=== PATIENT | female | born 1995 | race Caucasian/White ===

== ENCOUNTER → 2021-02-14 | Outpatient (CLI) | payer OTHER ==
[~2021-02-14] MED LIST: CEPH500 PO; Flagyl500 MG PO; METPHE20 PO; NITR100CA PO; Phenergan/Code480 ML PO; Prednisone20 MG PO; Pyridium100 MG PO
== END | disposition home or self-care (01) ==
LOC: LAB SHORT 15:27 → LAB 15:27
PROVIDERS: Family Medicine
DX: Z01.419 Encounter for gynecological examination (general) (routine) without abnormal findings (principal)
CPT/HCPCS: G0145

== ENCOUNTER 2024-12-02 08:49 | Emergency (ER) | payer SELFPAY ==
[~2024-12-02] VITALS: Ht 167.6 cm; Wt 104.3 kg
[2024-12-02] MEDS ORDERED: Ketorolac Tromethamine 15mg Vial IV ONE (09:30)
[2024-12-02] MEDS ORDERED: Prochlorperazine Edisylate 10 mg Vial IV ONE (09:30)
[2024-12-02] MEDS ORDERED: DiphenhydrAMINE HCl 50 MG/ML 1ML Vial IV ONE (09:30)
[2024-12-02] MEDS ORDERED: IMITREX50 M1 PO (09:59)
[2024-12-02] MEDS ORDERED: SERT50 PO (09:59)
[2024-12-02 11:14] VITALS: BP 130/68
== END 2024-12-02 11:14 | disposition home or self-care (01) ==
LOC: ER 08:49
DX: R51.9 Headache, unspecified (principal); Z79.899 Other long term (current) drug therapy
CPT/HCPCS: 96374; 96375; 99283-25; J0780; J1200; J1885

== ENCOUNTER → 2025-01-06 | Outpatient (CLI) | payer SELFPAY ==
[~2025-01-06] MED LIST changes: +IMITREX50 M1 PO; +SERT50 PO
[2025-01-06 12:14] LABS: BASOPHILS ABSOLUTE AUTO 0.04 K/mm3 (0.00-0.23); BASOPHILS PERCENT AUTO 0 % (0-2); EOSINOPHILS ABSOLUTE AUTO 0.03 K/mm3 (0.00-0.68); EOSINOPHILS PERCENT AUTO 0 % (0-6); Hematocrit 38.3 % (33.0-51.0); Hemoglobin 12.6 g/dL (11.5-16.0); IMMATURE GRAN ABSOLUTE AUTO 0.05 K/mm3 (0.00-0.10); IMMATURE GRAN PERCENT AUTO 0 % (0-1); LYMPHOCYTES ABSOLUTE AUTO 2.63 K/mm3 (0.84-5.20); LYMPHOCYTES PERCENT AUTO 20 % (21-46); MONOCYTES ABSOLUTE AUTO 0.76 K/mm3 (0.16-1.47); MONOCYTES PERCENT AUTO 6 % (4-13); Mean Corpuscular HGB 30.9 pg (26.0-34.0); Mean Corpuscular HGB Conc 32.9 g/dL (31.5-36.5); Mean Corpuscular Volume 94 fL (80-100); Mean Platelet Volume 11.8 fL (9.1-12.4); NEUTROPHILS ABSOLUTE AUTO 9.81 K/mm3 (1.96-9.15); NEUTROPHILS PERCENT AUTO 74 % (41-73); Platelet Count 280 K/mm3 (150-400); RDW Coefficient Variation 12.6 % (11.7-14.2); RDW Standard Deviation 43.3 fL (35.1-46.3); Red Blood Cell Count 4.08 M/mm3 (3.80-5.20); White Blood Cell Count 13.32 K/mm3 (4.00-11.30)
[2025-01-06 12:25] LABS: Albumin, Blood 4.2 g/dL (3.4-5.0); Albumin/Globulin Ratio 1.2 (0.8-1.8); Bilirubin, Total 0.5 mg/dL (0.1-1.0); Calcium, Blood 9.4 mg/dL (8.5-10.1); Creatinine, Blood 0.81 mg/dL (0.40-1.00); Globulin, Blood 3.6 g/dL (2.2-4.0); Potassium, Blood 3.9 mmol/L (3.5-5.5); Total Protein, Blood 7.8 g/dL (6.4-8.2)
== END ==
LOC: LAB SHORT 12:10 → LAB 12:10
PROVIDERS: Emergency Medicine
DX: R10.9 Unspecified abdominal pain (principal)
CPT/HCPCS: 80053; 83690; 85025

== ENCOUNTER 2025-01-11 11:46 | Inpatient (IN) | payer SELFPAY ==
[~2025-01-11] VITALS: Ht 167.6 cm; Wt 110.9 kg
[2025-01-11] MEDS ORDERED: Acetaminophen 325 MG TABLET PO PRN (13:10)
[2025-01-11] MEDS ORDERED: OxyCODONE HCL 5 MG TAB PO PRN (13:10)
[2025-01-11] MEDS ORDERED: FentaNYL Citrate 50 MCG/ML 2 ML Injection IV PRN (13:15)
[2025-01-11 13:18] VITALS: BP 112/66
[2025-01-11] MEDS ORDERED: METR500 PO (13:49)
[2025-01-11] MEDS ORDERED: Cipro500 MG PO (13:49)
[2025-01-11] MEDS ORDERED: TOPI100 PO (13:50)
[2025-01-11] MEDS ORDERED: BUTALB-ACETAMI1 EAC5 PO (13:52)
[2025-01-11] MEDS ORDERED: NAPROXEN500 MG PO (13:52)
[2025-01-11] MEDS ORDERED: Norethindrone0.35 MG PO (13:54)
[2025-01-11] MEDS ORDERED: Piperacillin/Tazobactam Sod 3.375 GM in NS 100 ML IV SCH ×2 (14:00→20:00)
[2025-01-11 14:18] LABS: BASOPHILS ABSOLUTE AUTO 0.03 K/mm3 (0.00-0.23); BASOPHILS PERCENT AUTO 0 % (0-2); EOSINOPHILS PERCENT AUTO 1 % (0-6); Hematocrit 40.1 % (33.0-51.0); Hemoglobin 13.7 g/dL (11.5-16.0); IMMATURE GRAN ABSOLUTE AUTO 0.02 K/mm3 (0.00-0.10); IMMATURE GRAN PERCENT AUTO 0 % (0-1); LYMPHOCYTES ABSOLUTE AUTO 2.45 K/mm3 (0.84-5.20); LYMPHOCYTES PERCENT AUTO 34 % (21-46); MONOCYTES ABSOLUTE AUTO 0.55 K/mm3 (0.16-1.47); MONOCYTES PERCENT AUTO 8 % (4-13); Mean Corpuscular HGB 31.1 pg (26.0-34.0); Mean Corpuscular HGB Conc 34.2 g/dL (31.5-36.5); Mean Corpuscular Volume 91 fL (80-100); Mean Platelet Volume 11.3 fL (9.1-12.4); NEUTROPHILS PERCENT AUTO 57 % (41-73); Platelet Count 333 K/mm3 (150-400); RDW Coefficient Variation 11.9 % (11.7-14.2); RDW Standard Deviation 40.1 fL (35.1-46.3); White Blood Cell Count 7.25 K/mm3 (4.00-11.30)
[2025-01-11] MEDS ORDERED: NS 250 ML IV PRN (14:20)
[2025-01-11 14:45] LABS: Albumin, Blood 4.1 g/dL (3.4-5.0); Albumin/Globulin Ratio 1.1 (0.8-1.8); Bilirubin, Total 0.2 mg/dL (0.1-1.0); Calcium, Blood 9.6 mg/dL (8.5-10.1); Creatinine, Blood 0.75 mg/dL (0.40-1.00); Globulin, Blood 3.9 g/dL (2.2-4.0); Potassium, Blood 3.4 mmol/L (3.5-5.5)
[2025-01-11 16:37] VITALS: BP 119/93
--- NOTE | 2025-01-11 18:08 | NUR ---
PT ARRIVED AT [address] OFF[address]. PT ALERT, ORIENTED, ABLE TO MAKE NEEDS KNOWN. PT DENIES PAIN, UP INDEPENDENTLY IN ROOM. IV PLACED, IV ANTIBIOTICS STARTED, NO ADVERSE REACTIONS NOTED. PT ORIENTED TO MEDICAL FLOOR AND USE OF CALL LIGHT-USES APPROPRIATELY. SHE DOES SUFFER FROM CHRONIC LOOSE STOOLS AT BASELINE-LAST LOOSE STOOL TODAY.
[2025-01-11 19:40] VITALS: BP 114/68
[2025-01-11] MEDS ORDERED: Topiramate 100 MG Tab PO SCH (21:00)
[2025-01-12 03:19] VITALS: BP 114/74
--- NOTE | 2025-01-12 03:31 | NUR ---
SHIFT SUMMARY NO ACUTE EVENTS DURING THIS SHIFT. PT'S SO BY THE BEDSIDE T/O THE NIGHT. PT DENIES PAIN AND DISCOMFORT. ZOSYN INFUSED Q6HRS ORDERED. PT IS A/O X4, ABLE TO MAKE HER NEEDS KNOWN AND COOPERATIVE WITH CARE. BED AT THE LOWEST POSITION, CALL LIGHT W/I REACH. VSS.
[2025-01-12 06:29] LABS: BASOPHILS ABSOLUTE AUTO 0.05 K/mm3 (0.00-0.23); BASOPHILS PERCENT AUTO 1 % (0-2); EOSINOPHILS ABSOLUTE AUTO 0.18 K/mm3 (0.00-0.68); EOSINOPHILS PERCENT AUTO 3 % (0-6); Hematocrit 40.3 % (33.0-51.0); Hemoglobin 13.3 g/dL (11.5-16.0); IMMATURE GRAN ABSOLUTE AUTO 0.02 K/mm3 (0.00-0.10); IMMATURE GRAN PERCENT AUTO 0 % (0-1); LYMPHOCYTES ABSOLUTE AUTO 2.65 K/mm3 (0.84-5.20); LYMPHOCYTES PERCENT AUTO 39 % (21-46); MONOCYTES ABSOLUTE AUTO 0.53 K/mm3 (0.16-1.47); MONOCYTES PERCENT AUTO 8 % (4-13); Mean Corpuscular HGB 30.6 pg (26.0-34.0); Mean Corpuscular Volume 93 fL (80-100); Mean Platelet Volume 11.3 fL (9.1-12.4); NEUTROPHILS ABSOLUTE AUTO 3.36 K/mm3 (1.96-9.15); NEUTROPHILS PERCENT AUTO 50 % (41-73); Platelet Count 306 K/mm3 (150-400); RDW Standard Deviation 41.3 fL (35.1-46.3); Red Blood Cell Count 4.34 M/mm3 (3.80-5.20); White Blood Cell Count 6.79 K/mm3 (4.00-11.30)
[2025-01-12 06:47] LABS: Bun/Creatinine Ratio 9.7 (12.0-20.0); Calcium, Blood 9.1 mg/dL (8.5-10.1); Creatinine, Blood 0.82 mg/dL (0.40-1.00); Potassium, Blood 3.6 mmol/L (3.5-5.5)
[2025-01-12 08:12] VITALS: BP 106/57
[2025-01-12] MEDS ORDERED: Sertraline HCl 100 MG Tab PO SCH (09:00)
[2025-01-12] MEDS ORDERED: Enoxaparin 40 MG/0.4 ML SYR SC SCH (09:00)
[2025-01-12] MEDS ORDERED: ZOLOFT10013 PO (14:03)
[2025-01-12] MEDS ORDERED: CIPR500 PO (14:03)
[2025-01-12 16:40] VITALS: BP 117/69
--- NOTE | 2025-01-12 19:05 | NUR ---
assumed care uneventful day for pt. a/o x 4 no c/o pain at bedside. pt cont with clr liq diet without any issues. pt amb in gonzalez and brando well. able to make needs known call light within reach
[2025-01-12 19:13] VITALS: BP 130/75
--- NOTE | 2025-01-13 03:40 | NUR ---
SHIFT SUMMARY NO ACUTE EVENTS DURING THIS SHIFT. PT IS PLEASANT, A/O X4, ABLE TO MAKE HER NEEDS KNOWN AND COOPERATIVE WITH CARE. IV ABX INFUSED ORDERED. MEDICATED WITH PRN TYLENOL @HS FOR C/O 7/10 H/A. BED AT THE LOWEST POSITION, CALL LIGHT W/I REACH.
[2025-01-13 05:29] VITALS: BP 138/78
[2025-01-13] MEDS ORDERED: Aspirin/Caffeine/Butalbital 1 CAP PO PRN (06:15)
[2025-01-13] MEDS ORDERED: Acetamin/Butalbital/Caffeine Tab PO PRN (06:20)
[2025-01-13 06:45] LABS: BASOPHILS ABSOLUTE AUTO 0.05 K/mm3 (0.00-0.23); BASOPHILS PERCENT AUTO 1 % (0-2); EOSINOPHILS ABSOLUTE AUTO 0.16 K/mm3 (0.00-0.68); EOSINOPHILS PERCENT AUTO 3 % (0-6); Hematocrit 41.6 % (33.0-51.0); Hemoglobin 13.7 g/dL (11.5-16.0); IMMATURE GRAN ABSOLUTE AUTO 0.01 K/mm3 (0.00-0.10); IMMATURE GRAN PERCENT AUTO 0 % (0-1); LYMPHOCYTES ABSOLUTE AUTO 2.08 K/mm3 (0.84-5.20); LYMPHOCYTES PERCENT AUTO 36 % (21-46); MONOCYTES ABSOLUTE AUTO 0.39 K/mm3 (0.16-1.47); MONOCYTES PERCENT AUTO 7 % (4-13); Mean Corpuscular HGB 30.4 pg (26.0-34.0); Mean Corpuscular HGB Conc 32.9 g/dL (31.5-36.5); Mean Corpuscular Volume 92 fL (80-100); Mean Platelet Volume 11.4 fL (9.1-12.4); NEUTROPHILS ABSOLUTE AUTO 3.09 K/mm3 (1.96-9.15); NEUTROPHILS PERCENT AUTO 53 % (41-73); Platelet Count 348 K/mm3 (150-400); RDW Coefficient Variation 12.1 % (11.7-14.2); RDW Standard Deviation 41.7 fL (35.1-46.3); White Blood Cell Count 5.78 K/mm3 (4.00-11.30)
[2025-01-13 07:33] LABS: Bun/Creatinine Ratio 8.3 (12.0-20.0); Calcium, Blood 9.2 mg/dL (8.5-10.1); Creatinine, Blood 0.84 mg/dL (0.40-1.00); Potassium, Blood 3.5 mmol/L (3.5-5.5)
[2025-01-13 07:37] VITALS: BP 104/56
--- NOTE | 2025-01-13 18:11 | NUR ---
ASSUMED CARE. EVENTFUL DAY FOR PT, PT FEEL MUCH BETTER AND WAS ADVANCED TO FULL LIQ DIET, GIANNI WELL AND EDUCATED ABOUT LOW FIBER DIET WHILE HAVING DIVERTICULITIS. OTHERWISE NO CHANGE IN CONDITION, PAIN IS MINIMAL 1- 3 AND TOLERABLE. AT BEDSIDE TO ASSIST IN CARE. CALL LIGHT WITHIN REACH PT MAKES NEEDS KNOWN.
[2025-01-13 21:15] VITALS: BP 135/69
--- NOTE | 2025-01-14 04:07 | NUR ---
SHIFT SUMM: PT IS A 29 YO FULL CODE WHO WAS ADMITTED FOR DIVERTICULITIS W/MICROPERFORATION. PT IS IND IN ROOM AND HAS S/O AT BEDSIDE THIS SHIFT. PT CALLS TO MAKE NEEDS KNOWN AND REPORTS TO NOT BE IN PAIN THIS SHIFT. PT ALSO REPORTS TO BE FEELING BETTER AND ABLE TO TOLERATE MORE FOODS. PT IS ON A FULL LIQUID DIET AND TO ADVANCE NEEDED FOR TOLERATION. PT'S IV REMAINS PATENT FOR ANTIBIOTIC MEDS. PT REPORTS HOPING TO GET TO GO HOME TODAY. PT HAS CALL LIGHT IN REACH AND BED LOW AND LOCKED FOR SAFETY.
[2025-01-14 06:04] VITALS: BP 115/65
[2025-01-14 08:08] VITALS: BP 111/75
[2025-01-14] MEDS ORDERED: AMOCLA875 PO (11:34)
--- NOTE | 2025-01-14 11:58 | NUR ---
DISCHARGE NOTE PATIENT A/OX4, ABLE TO MAKE NEEDS KNOWN. PLEASANT AND COOPERATIVE WITH CARE. INDEPENDENT IN ROOM. PATIEN EAGER FOR DISCHARGE AND RECEPTIVE TO EDUCATION. AGREEABLE TO LOW FIBER DIET AND FOLLOW UP APPOINTMENTS. MEDICATIONS FAXED TO [facility] PER PATIENT REQUEST. PATIENT ASSISTED TO FAMILY VEHICLE VIA WHEELCHAIR BY [facility] STAFF. IV REMOVED PRIOR TO DISCHARGE. NO OTHER CONCERNS AT THIS TIME.
== END 2025-01-14 11:54 | disposition home or self-care (01) | DRG 392 ==
LOC: MEDS 11:46
PROVIDERS: ADMIT Internal Medicine
DX: K57.20 Diverticulitis of large intestine with perforation and abscess without bleeding (principal); F41.1 Generalized anxiety disorder; E28.2 Polycystic ovarian syndrome; E78.5 Hyperlipidemia, unspecified; G43.909 Migraine, unspecified, not intractable, without status migrainosus; F17.290 Nicotine dependence, other tobacco product, uncomplicated; Z79.1 Long term (current) use of non-steroidal anti-inflammatories (NSAID)
CPT/HCPCS: 36415; 80048; 80053; 85025; A9270; J1650; J2543; J7050

== ENCOUNTER → 2025-06-30 | Outpatient (CLI) | payer SELFPAY ==
[~2025-06-30] MED LIST changes: +ACET325 PO; +AMOCLA875 PO; +BUTALB-ACETAMI1 EAC5 PO; +CIPR500 PO; +Cipro500 MG PO; +METR500 PO; +NAPROXEN500 MG PO; +Norethindrone0.35 MG PO; +TOPI100 PO; +VISBIOME 112.51 EACH PO; +ZOLOFT10013 PO
[2025-06-30 11:34] LABS: BASOPHILS ABSOLUTE AUTO 0.03 K/mm3 (0.00-0.23); BASOPHILS PERCENT AUTO 1 % (0-2); EOSINOPHILS ABSOLUTE AUTO 0.11 K/mm3 (0.00-0.68); EOSINOPHILS PERCENT AUTO 2 % (0-6); Hematocrit 42.0 % (33.0-51.0); Hemoglobin 13.9 g/dL (11.5-16.0); IMMATURE GRAN ABSOLUTE AUTO 0.01 K/mm3 (0.00-0.10); IMMATURE GRAN PERCENT AUTO 0 % (0-1); LYMPHOCYTES ABSOLUTE AUTO 1.89 K/mm3 (0.84-5.20); LYMPHOCYTES PERCENT AUTO 37 % (21-46); MONOCYTES ABSOLUTE AUTO 0.27 K/mm3 (0.16-1.47); MONOCYTES PERCENT AUTO 5 % (4-13); Mean Corpuscular HGB Conc 33.1 g/dL (31.5-36.5); Mean Corpuscular Volume 94 fL (80-100); NEUTROPHILS ABSOLUTE AUTO 2.77 K/mm3 (1.96-9.15); NEUTROPHILS PERCENT AUTO 55 % (41-73); NRBC ABSOLUTE 0.00 K/mm3 (0.00-0.02); NRBC Auto 0.0 /100 WBC (0.0-0.2); Platelet Count 219 K/mm3 (150-400); RDW Coefficient Variation 12.3 % (11.7-14.2); RDW Standard Deviation 42.6 fL (35.1-46.3)
[2025-06-30 11:48] LABS: Alanine Aminotransfer (ALT/SGP 76.0 U/L (12-78); Albumin, Blood 4.0 g/dL (3.4-5.0); Albumin/Globulin Ratio 1.2 (0.8-1.8); Anion Gap 14.0 mmol/L (3-11); Aspartate Aminotrans (AST/SGOT 28.0 U/L (12-37); Bilirubin, Total 0.4 mg/dL (0.1-1.0); Blood Urea Nitrogen 10.0 mg/dL (8-24); CO2, Blood 21.0 mmol/L (21-32); Calcium, Blood 9.2 mg/dL (8.5-10.1); Chloride, Blood 110.0 mmol/L (98-108); Creatinine, Blood 0.67 mg/dL (0.40-1.00); Globulin, Blood 3.3 g/dL (2.2-4.0); Glucose, Blood 110.0 mg/dL (70-99); Potassium, Blood 4.0 mmol/L (3.5-5.5); Sodium, Blood 141.0 mmol/L (136-145); Total Protein, Blood 7.3 g/dL (6.4-8.2)
== END | disposition home or self-care (01) ==
LOC: LAB SHORT 11:31 → LAB 11:31
PROVIDERS: Physician Assistant
DX: R10.30 Lower abdominal pain, unspecified (principal)
CPT/HCPCS: 80053; 85025

== ENCOUNTER 2025-08-16 18:01 | Emergency (ER) | payer SELFPAY ==
[~2025-08-16] VITALS: Ht 170.2 cm; Wt 90.7 kg
[2025-08-16] MEDS ORDERED: Morphine Sulfate 4 MG/1 ML Injection IV ONE (18:45)
[2025-08-16] MEDS ORDERED: Ondansetron HCl 2 MG / ML 2ML Vial IV ONE (18:50)
[2025-08-16 19:26] LABS: BASOPHILS ABSOLUTE AUTO 0.04 K/mm3 (0.00-0.23); BASOPHILS PERCENT AUTO 1 % (0-2); EOSINOPHILS ABSOLUTE AUTO 0.15 K/mm3 (0.00-0.68); EOSINOPHILS PERCENT AUTO 2 % (0-6); Hematocrit 42.5 % (33.0-51.0); Hemoglobin 14.0 g/dL (11.5-16.0); IMMATURE GRAN ABSOLUTE AUTO 0.02 K/mm3 (0.00-0.10); IMMATURE GRAN PERCENT AUTO 0 % (0-1); LYMPHOCYTES ABSOLUTE AUTO 2.67 K/mm3 (0.84-5.20); LYMPHOCYTES PERCENT AUTO 35 % (21-46); MONOCYTES ABSOLUTE AUTO 0.52 K/mm3 (0.16-1.47); MONOCYTES PERCENT AUTO 7 % (4-13); Mean Corpuscular HGB Conc 32.9 g/dL (31.5-36.5); Mean Corpuscular Volume 96 fL (80-100); NEUTROPHILS ABSOLUTE AUTO 4.14 K/mm3 (1.96-9.15); NEUTROPHILS PERCENT AUTO 55 % (41-73); NRBC ABSOLUTE 0.00 K/mm3 (0.00-0.02); NRBC Auto 0.0 /100 WBC (0.0-0.2); Platelet Count 233 K/mm3 (150-400); RDW Coefficient Variation 12.5 % (11.7-14.2); RDW Standard Deviation 44.5 fL (35.1-46.3)
[2025-08-16 19:50] LABS: Alanine Aminotransfer (ALT/SGP 125.0 U/L (12-78); Albumin, Blood 3.7 g/dL (3.4-5.0); Albumin/Globulin Ratio 1.1 (0.8-1.8); Anion Gap 8.0 mmol/L (3-11); Aspartate Aminotrans (AST/SGOT 68.0 U/L (12-37); Bilirubin, Total 0.2 mg/dL (0.1-1.0); Blood Urea Nitrogen 13.0 mg/dL (8-24); CO2, Blood 21.0 mmol/L (21-32); Calcium, Blood 9.1 mg/dL (8.5-10.1); Chloride, Blood 113.0 mmol/L (98-108); Creatinine, Blood 0.68 mg/dL (0.40-1.00); Globulin, Blood 3.5 g/dL (2.2-4.0); Glucose, Blood 82.0 mg/dL (70-99); Potassium, Blood 3.9 mmol/L (3.5-5.5); Sodium, Blood 138.0 mmol/L (136-145); Total Protein, Blood 7.2 g/dL (6.4-8.2)
[2025-08-16 20:57] LABS: Source, Urine Clean Catch
[2025-08-16 21:01] LABS: Bilirubin, Urine Neg (Neg); Color, Urine Yellow (P-Yellow); Glucose Qualitative, Urine Neg (Neg); Ketones, Urine Neg (Neg); Leukocyte Esterase, Urine 1+ (Neg); Protein, Urine 1+ (Neg); Specific Gravity, Urine 1.010 (1.003-1.022); Urobilinogen, Urine NORM (Normal)
[2025-08-16 21:04] VITALS: BP 106/68
[2025-08-16 21:08] LABS: Red Blood Cells, Urine 0-2 /hpf (0-2)
[2025-08-16] MEDS ORDERED: Ondansetron HCl 2 MG / ML 2ML Vial ONE (23:05)
== END 2025-08-16 23:08 | disposition home or self-care (01) ==
LOC: ER 18:01
PROVIDERS: Student in an Organized Health Care Education/Training Program
DX: R10.32 Left lower quadrant pain (principal); Z79.899 Other long term (current) drug therapy
CPT/HCPCS: 74177; 80053; 81001; 83690; 85025; 87086; 96374-59; 99284-25; J2405; Q9967